=== PATIENT | female | born 1945 | race African-American/Black ===

== ENCOUNTER 2021-09-06 17:17 | Emergency (ER) | payer BC, MEDICARE, OTHER ==
[~2021-09-06] VITALS: Ht 177.8 cm; Wt 77.0 kg
[~2021-09-06 17:17] MED LIST: AMLO5TAB4 PO; LISI40TA13 PO
[2021-09-06 19:07] LABS: HEMATOCRIT. 36.6 % (36.0-48.0); HEMOGLOBIN. 12.2 g/dL (12.0-16.0); MEAN CORPUSCULAR HEMOGLOBIN 30.7 pg (28.0-32.0); MEAN CORPUSCULAR VOLUME 91.8 fL (81.0-99.0); MEAN PLATELET VOLUME 10.1 fl (7.4-10.4); PLATELET 106 x1000/uL (130-400); RED BLOOD CELL COUNT 3.99 mill/uL (4.2-5.4); RED CELL DISTRIBUTION WIDTH 14.6 % (11.6-14.6)
[2021-09-06 19:14] LABS: CHLORIDE 113 mEq/L (98-107)
[2021-09-06 19:25] LABS: ETHANOL BLOOD < 10 mg/dL
[2021-09-06 19:42] VITALS: BP 118/60
[2021-09-06 19:47] LABS: PLATELET ESTIMATE DECREASED
== END 2021-09-06 23:07 | disposition home or self-care (01) ==
LOC: ER 17:17
DX: R42 Dizziness and giddiness (principal); R53.1 Weakness; G89.29 Other chronic pain; M54.59 Other low back pain; I10 Essential (primary) hypertension
CPT/HCPCS: 36415; 71045; 80053; 80320; 83880; 84484; 85025; 93005; 99285; G0480